=== PATIENT | female | born 1950 | race African-American/Black ===

== ENCOUNTER 2019-01-19 14:40 | Emergency (ER) | payer OTHER ==
[~2019-01-19] VITALS: Ht 165.1 cm; Wt 63.5 kg
[~2019-01-19 14:40] MED LIST: CARV6.2511 PO; METF10007 PO; VERA80TA2 PO
[2019-01-19] MEDS ORDERED: IV NORMAL SALINE 1000ML BAG 1,000 ML IV SCH (15:05)
[2019-01-19 15:15] LABS: BASO # 0.1 x10^3/uL (0.0-0.2); BASO % 1 % (0-3); EOS # 0.1 x10^3/uL (0.0-0.7); EOS % 1 % (0-3); HEMATOCRIT 37.8 % (36.0-47.0); HEMOGLOBIN 12.1 g/dL (12.0-15.5); LYMPH # 2.4 x10^3/uL (1.0-4.8); LYMPH % 28 % (24-48); MEAN CORPUSCULAR HEMOGLOBIN 26 pg (25-35); MEAN CORPUSCULAR HGB CONC 32 g/dL (31-37); MEAN CORPUSCULAR VOLUME 82 fL (79-100); MONO # 0.7 x10^3/uL (0.0-1.1); MONO % 9 % (0-9); NEUT # 5.3 x10^3uL (1.8-7.7); NEUT % 62 % (31-73); PLATELET COUNT 329 x10^3/uL (140-400); RED CELL DISTRIBUTION WIDTH 17.6 % (11.5-14.5); WHITE BLOOD COUNT 8.6 x10^3/uL (4.0-11.0)
[2019-01-19] MEDS ORDERED: fentaNYL PF VIAL 100 MCG/2 ML VIAL IV ONE (15:15)
[2019-01-19] MEDS ORDERED: ONDANSETRON PF 4 MG/2 ML VIAL. IV ONE (15:15)
[2019-01-19 15:21] LABS: CALCIUM 9.6 mg/dL (8.5-10.1); CREATININE 0.8 mg/dL (0.6-1.0); GFR 86.1; POTASSIUM 4.5 mmol/L (3.5-5.1)
--- NOTE | 2019-01-19 15:22 | PHYS DOC ---
Past Medical History Past Medical History: Arrhythmia, Asthma, COPD, Diabetes-Type II, Hypertension , Seizure Past Surgical History: Hysterectomy Alcohol Use: None Drug Use: None Adult General Chief Complaint Chief Complaint: ABDOMINAL PAIN HPI HPI Patient is a 68 year old female who presents with complaining of abdominal pain. Patient coming of gradual onset of right lower quadrant pain for the last 3 days as a constant and sharp pain with radiation to her back and rated her pain 9/10. Patient denies fever and chills, nausea and vomiting, anorexia, history of abdominal pain. Patient states she had a bowel movement 3 days ago and had flatus today. Patient denies history of constipation. Patient states she took ibuprofen without change of her pain. Review of Systems Review of Systems Constitutional: Denies fever or chills [] Eyes: Denies change in visual acuity, redness, or eye pain [] HENT: Denies nasal congestion or sore throat [] Respiratory: Denies cough or shortness of breath [] Cardiovascular: No additional information not addressed in HPI [] GI: Reports abdominal pain, constipation, denies nausea, vomiting, bloody stools or diarrhea [] : Denies dysuria or hematuria [] Musculoskeletal: Denies back pain or joint pain [] Integument: Denies rash or skin lesions [] Neurologic: Denies headache, focal weakness or sensory changes [] Endocrine: Denies polyuria or polydipsia [] All other systems were reviewed and found to be within normal limits, except as documented in this note. Current Medications Current Medications Current Medications Medications (Trade) Dose Ordered Sig/[facility] Start Time Stop Time Status Last Admin Dose Admin Fentanyl Citrate (Fentanyl 2ml Vial) 50 mcg 1X ONCE 01/19/19 15:15 01/19/19 15:16 DC 01/19/19 15:19 50 MCG Info (CONTRAST GIVEN -- Rx MONITORING) 1 each PRN DAILY PRN 01/19/19 16:15 01/21/19 16:14 Iohexol (Omnipaque 300 Mg/ml) 75 ml 1X ONCE 01/19/19 16:00 01/19/19 16:01 DC 01/19/19 16:35 75 ML Ondansetron HCl (Zofran) 4 mg 1X ONCE 01/19/19 15:15 01/19/19 15:16 DC 01/19/19 15:18 4 MG Sodium Chloride 1,000 ml @ 1,000 mls/hr Q1H 01/19/19 15:05 01/19/19 16:04 DC 01/19/19 15:17 1,000 MLS/HR Allergies Allergies Allergies Coded Allergies Type Severity Reaction Last Updated Verified No Known Drug Allergies 05/04/14 No Physical Exam Physical Exam Constitutional: Well developed, well nourished, moderate distress, non-toxic appearance. [] HENT: Normocephalic, atraumatic, oropharynx dry, no oral exudates, nose normal. [] Eyes: PERRLA, EOMI, conjunctiva normal, no discharge. [] Neck: Normal range of motion, no tenderness, supple, no stridor. [] Cardiovascular:Heart rate regular rhythm, no murmur [] Lungs & Thorax: Bilateral breath sounds clear to auscultation [] Abdomen: Bowel sounds hyperactive, soft, right lower quadrant tenderness with rebound tenderness and positive McBurney sign, no masses, no pulsatile masses. [ ] Skin: Warm, dry, no erythema, no rash. [] Back: No tenderness, no CVA tenderness. [] Extremities: No tenderness, no cyanosis, no clubbing, ROM intact, no edema. [] Neurologic: Alert and oriented X 3, normal motor function, normal sensory function, no focal deficits noted. [] Psychologic: Affect anxious, judgement normal, mood normal. [] Current Patient Data Vital Signs Vital Signs Date Time Temp Pulse Resp B/P (MAP) Pulse Ox O2 Delivery O2 Flow Rate FiO2 01/19/19 16:30 50 16 159/82 (107) 96 Room Air 01/19/19 14:45 97.8 97.8 Lab Values Laboratory Tests Test 01/19/19 15:00 01/19/19 15:44 White Blood Count 8.6 x10^3/uL (4.0-11.0) Red Blood Count 4.60 x10^6/uL (3.50-5.40) Hemoglobin 12.1 g/dL (12.0-15.5) Hematocrit 37.8 % (36.0-47.0) Mean Corpuscular Volume 82 fL (79-100) Mean Corpuscular Hemoglobin 26 pg (25-35) Mean Corpuscular Hemoglobin Concent 32 g/dL (31-37) Red Cell Distribution Width 17.6 % (11.5-14.5) H Platelet Count 329 x10^3/uL (140-400) Neutrophils (%) (Auto) 62 % (31-73) Lymphocytes (%) (Auto) 28 % (24-48) Monocytes (%) (Auto) 9 % (0-9) Eosinophils (%) (Auto) 1 % (0-3) Basophils (%) (Auto) 1 % (0-3) Neutrophils # (Auto) 5.3 x10^3uL (1.8-7.7) Lymphocytes # (Auto) 2.4 x10^3/uL (1.0-4.8) Monocytes # (Auto) 0.7 x10^3/uL (0.0-1.1) Eosinophils # (Auto) 0.1 x10^3/uL (0.0-0.7) Basophils # (Auto) 0.1 x10^3/uL (0.0-0.2) Sodium Level 139 mmol/L (136-145) Potassium Level 4.5 mmol/L (3.5-5.1) Chloride Level 102 mmol/L (98-107) Carbon Dioxide Level 29 mmol/L (21-32) Anion Gap 8 (6-14) Blood Urea Nitrogen 9 mg/dL (7-20) Creatinine 0.8 mg/dL (0.6-1.0) Estimated GFR (Cockcroft-Gault) 86.1 BUN/Creatinine Ratio 11 (6-20) Glucose Level 119 mg/dL (70-99) H Calcium Level 9.6 mg/dL (8.5-10.1) Total Bilirubin 0.3 mg/dL (0.2-1.0) Aspartate Amino Transferase (AST) 16 U/L (15-37) Alanine Aminotransferase (ALT) 8 U/L (14-59) L Alkaline Phosphatase 92 U/L (46-116) Total Protein 7.8 g/dL (6.4-8.2) Albumin 3.7 g/dL (3.4-5.0) Albumin/Globulin Ratio 0.9 (1.0-1.7) L Lipase 78 U/L (73-393) Urine Collection Type Void Urine Color Yellow Urine Clarity Cloudy Urine pH 5.5 Urine Specific [place] <=1.005 Urine Protein Negative mg/dL (NEG-TRACE) Urine Glucose (UA) Negative mg/dL (NEG) Urine Ketones (Stick) Negative mg/dL (NEG) Urine Blood Negative (NEG) Urine Nitrite Negative (NEG) Urine Bilirubin Negative (NEG) Urine Urobilinogen Dipstick 0.2 mg/dL (0.2 mg/dL) Urine Leukocyte Esterase Negative (NEG) Urine RBC 0 /HPF (0-2) Urine WBC 0 /HPF (0-4) Urine Squamous Epithelial Cells Few /LPF Urine Bacteria 0 /HPF (0-FEW) Laboratory Tests 01/19/19 15:00 Laboratory Tests 01/19/19 15:00 EKG EKG [] Radiology/Procedures Radiology/Procedures [facility] [address] [place] [address] IMAGING REPORT Signed PATIENT: RICHARD DOWNS ACCOUNT: [id number] : 1950 LOCATION: ER AGE: 68 SEX: F EXAM STATUS: REG ER ORD. PHYSICIAN: ABA WILSON MD REASON: lower quadrant pain PROCEDURE: CT ABD PELV W/ IV CONTRST ONLY PQRS Compliance Statement: One or more of the following individualized dose reduction techniques were utilized for this examination: 1. Automated exposure control 2. Adjustment of the mA and/or kV according to patient size 3. Use of iterative reconstruction technique CT ABD PELV W/ IV CONTRST ONLY Clinical Indication: LOWER ABDOMINAL PAIN LEFT SIDED, Comparison: CT abdomen and pelvis with contrast August 08, 2009. Technique: Helical CT imaging of the abdomen and pelvis is performed after 75 cc of Omnipaque 300 IV contrast. Oral contrast not given. Findings: There are moderate groundglass opacities in the right lung base and left lung base. Suggestion of mosaic attenuation pattern. Common etiology is small airways disease. Calcific aortic valve stenosis. The cardiac size is normal. Liver, gallbladder, spleen, pancreas, adrenal glands, and kidneys are normal. There is aneurysm of the infrarenal abdominal aorta, maximum diameter 3.4 cm. There is mild atherosclerotic calcification and mural thrombus. The bilateral common iliac arteries are ectatic. Stomach unremarkable. No dilated small bowel. There is moderate distal colon diverticulosis. There is no colon wall thickening. The appendix is normal. No abdominal adenopathy or free fluid. Urinary bladder is mostly decompressed. Hysterectomy. No pelvic free fluid. Minimal grade 1 anterolisthesis of L4 on L5, mild grade 1 anterolisthesis of L5 on S1. No spondylolysis. IMPRESSION: 1. No acute abdominal or pelvic abnormality. 2. There is aneurysm of the infrarenal abdominal aorta. There is mural thrombus and luminal irregularity. 3. Moderate distal colon diverticulosis without diverticulitis. 4. Mosaic attenuation pattern in the lung bases suggests small airways disease. Electronically signed by: Karl Lindo MD (01/19/2019 5:37 PM) [facility] [place] DICTATED and SIGNED BY: KARL LINDO MD DATE: 01/19/19 1734 Course & Med Decision Making Course & Med Decision Making Pertinent Labs and Imaging studies reviewed. (See chart for details) Evaluation of patient in ER showed 68-year-old female patient with complaining of right lower quadrant without nausea and vomiting, fever and chills, urinary symptom, anorexia. Patient had constipation for the last 3 days. Exam and labs was unremarkable. CT of abdomen and pelvis did not show acute finding except for chronic diverticulosis. Patient was advised blood test results and needs for follow-up with her primary care physician. discharge: I've spoken with the patient and/or caregivers. I've explained the patient's condition, diagnosis and treatment plan based on information available to me at this time. I've answered the patient's and/or caregivers questions and addressed any concerns. The patient and/or caregivers have a good understanding the patient's diagnosis, condition and treatment plan as can be expected at this point. Vital signs have been stabilized. The patient's condition is stable for discharge from the emergency department. The patient will pursue further outpatient evaluation with her primary care provider or other designated consulting physician as outlined in the discharge instructions. Patient and/or caregivers are agreeable to this plan of care and follow-up instructions have been explained in detail. The patient and/or caregivers have received these instructions in written format and expressed understanding of these discharge instructions. The patient and her caregivers are aware that if any significant change in condition or worsening of symptoms should prompt him to immediately return to this of the closest emergency department. If an emergent department is not readily available I would encourage him to call 911. Carmella Disclaimer Carmella Disclaimer This electronic medical record was generated, in whole or in part, using a voice recognition dictation system. Departure Departure Impression: Primary Impression: Constipation Additional Impressions: Right lower quadrant pain Diverticulosis Disposition: HOME, SELF-CARE (at 1800) Condition: IMPROVED Referrals: NON,STAFF (PCP) Patient Instructions: Abdominal Pain, Constipation, Adult, Diverticulosis Additional Instructions: Drink plenty of liquids Follow-up with your primary care physician in 3-5 days Return to ER if not getting better Do not eat solid food today and tomorrow Scripts Tramadol Hcl (ULTRAM) 50 Mg Tablet 50 MG PO Q6HRS PRN for PAIN, #14 TAB 0 Refills Prov: ABA WILSON MD 01/19/19 Magnesium Citrate (MAGNESIUM CITRATE) 296 Ml Solution 296 ML PO ONCE for constipation, #296 ML Prov: ABA WILSON MD 01/19/19 Problem Qualifiers Primary Impression: Constipation Constipation type: unspecified constipation type Qualified Codes: K59.00 - Constipation, unspecified ABA WILSON MD Jan 19, 2019 15:22
[2019-01-19 15:27] LABS: ALBUMIN 3.7 g/dL (3.4-5.0); ALBUMIN/GLOBULIN RATIO 0.9 (1.0-1.7); TOTAL BILIRUBIN 0.3 mg/dL (0.2-1.0); TOTAL PROTEIN 7.8 g/dL (6.4-8.2)
[2019-01-19 15:52] LABS: BILIRUBIN,URINE NEGATIVE (NEG); CLARITY,URINE CLOUDY; COLOR,URINE YELLOW; NITRITE,URINE NEGATIVE (NEG); PH,URINE 5.5; PROTEIN,URINE NEGATIVE (NEG-TRACE); UROBILINOGEN,URINE 0.2 mg/dL (0.2 mg/dL)
[2019-01-19] MEDS ORDERED: IOHEXOL 300 MG/ML 100ML VIAL. IV ONE (16:00)
[2019-01-19 16:03] LABS: BACTERIA,URINE 0 /HPF (0-FEW); RBC,URINE 0 /HPF (0-2); SQUAMOUS EPITHELIAL CELL,UR FEW /LPF; WBC,URINE 0 /HPF (0-4)
[2019-01-19] MEDS ORDERED: CONTRAST GIVEN. MC PRN (16:15)
--- NOTE | 2019-01-19 17:40 | RAD ---
PQRS Compliance Statement: One or more of the following individualized dose reduction techniques were utilized for this examination: 1. Automated exposure control 2. Adjustment of the mA and/or kV according to patient size 3. Use of iterative reconstruction technique CT ABD PELV W/ IV CONTRST ONLY Clinical Indication: LOWER ABDOMINAL PAIN LEFT SIDED, Comparison: CT abdomen and pelvis with contrast August 08, 2009. Technique: Helical CT imaging of the abdomen and pelvis is performed after 75 cc of Omnipaque 300 IV contrast. Oral contrast not given. Findings: There are moderate groundglass opacities in the right lung base and left lung base. Suggestion of mosaic attenuation pattern. Common etiology is small airways disease. Calcific aortic valve stenosis. The cardiac size is normal. Liver, gallbladder, spleen, pancreas, adrenal glands, and kidneys are normal. There is aneurysm of the infrarenal abdominal aorta, maximum diameter 3.4 cm. There is mild atherosclerotic calcification and mural thrombus. The bilateral common iliac arteries are ectatic. Stomach unremarkable. No dilated small bowel. There is moderate distal colon diverticulosis. There is no colon wall thickening. The appendix is normal. No abdominal adenopathy or free fluid. Urinary bladder is mostly decompressed. Hysterectomy. No pelvic free fluid. Minimal grade 1 anterolisthesis of L4 on L5, mild grade 1 anterolisthesis of L5 on S1. No spondylolysis. IMPRESSION: 1. No acute abdominal or pelvic abnormality. 2. There is aneurysm of the infrarenal abdominal aorta. There is mural thrombus and luminal irregularity. 3. Moderate distal colon diverticulosis without diverticulitis. 4. Mosaic attenuation pattern in the lung bases suggests small airways disease. Electronically signed by: Karl Cintron MD (01/19/2019 5:37 PM) [facility] – [place], [place]
[2019-01-19] MEDS ORDERED: TRAM-48 PO (17:59)
[2019-01-19] MEDS ORDERED: MAGN296S9 PO (17:59)
[2019-01-19 18:02] VITALS: BP 166/74
== END 2019-01-19 18:05 | disposition home or self-care (01) ==
LOC: ER 14:40
DX: K57.90 Diverticulosis of intestine, part unspecified, without perforation or abscess without bleeding (principal); I71.4 Abdominal aortic aneurysm, without rupture; J44.9 Chronic obstructive pulmonary disease, unspecified; E11.9 Type 2 diabetes mellitus without complications; I10 Essential (primary) hypertension; Z90.710 Acquired absence of both cervix and uterus
CPT/HCPCS: 36415; 74177; 80053; 81001; 83690; 85025; 96374; 96375; 99285; J2405; J3010; J7030; Q9967

== ENCOUNTER → 2021-08-09 | Outpatient (CLI) | payer MEDICARE, OTHER ==
[~2021-08-09] MED LIST changes: +MAGN296S68 PO; +TRAM-48 PO; -VERA80TA2 PO; +VERA80TA4 PO
--- NOTE | 2021-08-09 11:13 | RAD ---
XR CHEST 2V History: Reason: WEIGHT LOSS. TOBACCO USE X 25 YEARS. / Spl. Instructions: / History: Comparison: May 04, 2014 Findings: No consolidation or pleural effusion. Normal heart size. No pneumothorax. Impression: 1. No acute cardiopulmonary process. Electronically signed by: Alfred Gamboa DO (08/09/2021 11:10 AM) [id number]
== END ==
LOC: RAD 10:30
PROVIDERS: ATTEND Family Medicine
DX: R63.4 Abnormal weight loss (principal); Z72.0 Tobacco use
CPT/HCPCS: 71046

== ENCOUNTER → 2021-08-19 | Outpatient (CLI) | payer OTHER ==
--- NOTE | 2021-08-19 15:21 | CARD ---
MR#: [id number] Date of Study: 08/19/2021 Ordering Physician: Shu RICHARD, Referring Physician: Shu RICHARD, Tech: Laly Brittaye, [facility] APPROVED REPORT EXAM: Two-dimensional and M-mode echocardiogram with Doppler and color Doppler. Other Information Quality : AverageHR: 51bpm INDICATION Murmur RISK FACTORS Hypertension Hyperlipidemia Diabetes Smoking 2D DIMENSIONS RVDd2.5 (2.9-3.5cm)Left Atrium(2D)2.3 (1.6-4.0cm) IVSd1.1 (0.7-1.1cm)Aortic Root(2D)3.0 (2.0-3.7cm) LVDd4.1 (3.9-5.9cm)LVOT Diameter2.1 (1.8-2.4cm) PWd1.0 (0.7-1.1cm)LVDs2.9 (2.5-4.0cm) FS (%) 29.3 %SV42.9 ml LVEF(%)56.6 (>50%) Aortic Valve AoV Peak Mars.221.7cm/sAoV VTI49.0cm AO Peak GR.19.7mmHgLVOT Peak Mars.73.1cm/s LVOT VTI 17.54cmAO Mean GR.11mmHg KIM (VMAX)0.88yq3MZO (VTI)1.24cm2 Mitral Valve MV E Zyqkddus74.9cm/sMV DECEL [id number] MV A Namomfnp80.1cm/sMV E Mean Gr.1mmHg MV PAL98irY/A Ratio0.9 MVA (PHT)3.23cm2 TDI E/Lateral E'6.6E/Medial E'10.0 Pulmonary Valve PV Peak Xmlzdlkr95.2cm/sPV Peak Grad.3mmHg Tricuspid Valve TR P. Gpxldkpv644nw/sRAP [id number] TR Peak Gr.27nrJpXLXL74csDd Pulmonary Vein S1 Yaqkvbbu53.0cm/sD2 Cnihrztl90.5cm/s PVa [id number] LEFT VENTRICLE The left ventricle is normal size. There is borderline to mild concentric left ventricular hypertroph y. The left ventricular systolic function is normal and the ejection fraction is within normal range. The Ejection Fraction is 50-55%. There is normal LV segmental wall motion. Transmitral Doppler flow pattern is Grade II-pseudonormal filling dynamics. RIGHT VENTRICLE The right ventricle is normal size. There is normal right ventricular wall thickness. The right ventr icular systolic function is normal. ATRIA The left atrium size is normal. The right atrium size is normal. The interatrial septum is intact wit h no evidence for an atrial septal defect or patent foramen ovale as noted on 2-D or Doppler imaging. AORTIC VALVE The aortic valve is calcified and displays decreased opening. Doppler and Color Flow revealed trace a ortic regurgitation. Calculated aortic valve area is 1.12 cm2 with maximum pressure gradient of 26 mm Hg and mean pressure gradient of 13 mmHg. MITRAL VALVE The mitral valve is normal in structure and function. There is no evidence of mitral valve prolapse. There is no mitral valve stenosis. Doppler and Color-flow revealed trace mitral regurgitation. TRICUSPID VALVE The tricuspid valve is normal in structure and function. Doppler and Color Flow revealed trace tricus pid regurgitation with an estimated PAP of 30 mmHg. There is no tricuspid valve stenosis. PULMONIC VALVE Doppler and Color Flow revealed no pulmonic valvular regurgitation. There is no pulmonic valvular ria nosis. GREAT VESSELS The aortic root is normal in size. The ascending aorta is normal in size. The IVC is normal in size a nd collapses >50% with inspiration. PERICARDIAL EFFUSION There is no evidence of significant pericardial effusion. Critical Notification Critical Value: No <Conclusion> The left ventricular systolic function is normal and the ejection fraction is within normal range. Th e Ejection Fraction is 50-55%. There is normal LV segmental wall motion. The aortic valve is calcified and displays decreased opening. Calculated aortic valve area is 1.12 cm 2 with maximum pressure gradient of 26 mmHg and mean pressure gradient of 13 mmHg. Although there is no significant gradient by doppler criteria, visually the valve appears at least moderately narrowed. Signed by : Eulogio Burgos, Electronically Approved : 08/19/2021 15:21:18
== END ==
LOC: ECHO 10:24
PROVIDERS: ATTEND Family Medicine
DX: I35.1 Nonrheumatic aortic (valve) insufficiency (principal); I51.7 Cardiomegaly; R01.1 Cardiac murmur, unspecified
CPT/HCPCS: 93306